=== PATIENT | female | born 1935 | race Caucasian/White ===

== ENCOUNTER 2017-01-07 10:20 | Observation (INO) | payer OTHER, BC ==
[~2017-01-07] VITALS: Ht 157.5 cm; Wt 97.4 kg
[~2017-01-07 10:20] MED LIST: KLOR-CON M2020 MEQ PO; LASIX40 MG PO; LISINOPRIL2.5 MG PO; LOPRESSOR25 MG PO; LOW DOSE ASPIRI81 M2 PO; METFORMIN HCL500 MG PO; PLAVIX75 MG PO; PREVACID15 MG PO; ZOCOR20 MG PO
[2017-01-07 13:23] LABS: HEMATOCRIT 40.7 % (36.0-46.0); MCH 27.3 PG (29.0-34.0); MCHC 30.5 G/DL (30.0-36.0); MCV 89.5 FL (83-99); MEAN PLAT.VOLUME 11.6 uM^3 (9.5-12.4); PLATELET COUNT 229 K/uL (156-360); RBC DIS.WIDTH-CV 13.5 % (11.8-14.6); RBC DIS.WIDTH-SD 44.2 % (39-53); RED BLOOD COUNT 4.55 M/uL (3.80-5.20); WHITE BLOOD COUNT 9.1 K/uL (4.1-10.2)
[2017-01-07 13:35] LABS: CHLORIDE 110 mEq/L (99-109); POTASSIUM 4.5 mEq/L (3.7-5.4); SODIUM 140 mEq/L (136-147)
[2017-01-07 13:37] LABS: GLUCOSE 175 mg/dL (70-99)
[2017-01-07 13:38] LABS: ANION GAP 11 MEQ/L (2-14)
[2017-01-07 13:41] LABS: GFR ESTIMATE (CALCULATED) 46 mL/min/; UREA NITROGEN (BUN) 34 mg/dL (9-23)
[2017-01-07 13:46] LABS: TROP-I INTERPRETATION NEGATIVE; TROPONIN-I < 0.01 ng/mL (0.0-0.30)
[2017-01-07] MEDS ORDERED: LOW DOSE ASPIRI81 M1 PO (14:09)
[2017-01-07] MEDS ORDERED: DIOVAN320 MG PO (14:10)
[2017-01-07] MEDS ORDERED: ALDACTAZIDE 251 EACH PO (14:10)
[2017-01-07] MEDS ORDERED: LIPITOR20 MG PO (14:12)
[2017-01-07] MEDS ORDERED: ATENOLOL100 MG PO (14:13)
[2017-01-07] MEDS ORDERED: VITAMIN D-32000 UNI2 PO (14:14)
[2017-01-07] MEDS ORDERED: AMLODIPINE BESY10 MG PO (14:15)
[2017-01-07 16:50] VITALS: BP 140/61
[2017-01-07 17:05] LABS: HDL CHOLESTEROL 37 MG/DL (Desirable>=50); LDL CHOLESTEROL 46 mg/dL (Desirable<100); NON-HDL CHOLESTEROL 70 mg/dL (Desirable<160); TOTAL CHOLESTEROL 107 mg/dL (Desirable<200); TRIGLYCERIDES 118 MG/DL (Normal: <150)
[2017-01-07 18:16] LABS: TROP-I INTERPRETATION NEGATIVE; TROPONIN-I < 0.01 ng/mL (0.0-0.30)
[2017-01-07 19:34] LABS: METH RESISTANT S AUREUS PCR NEGATIVE (NEGATIVE)
[2017-01-07 19:43] LABS: PROBE CHECK PASS; SPECIMEN PROCESSING CONTROL PASS
[2017-01-07 20:00] VITALS: BP 137/63
[2017-01-08 00:48] LABS: TROP-I INTERPRETATION NEGATIVE; TROPONIN-I < 0.01 ng/mL (0.0-0.30)
[2017-01-08 01:11] VITALS: BP 143/65
[2017-01-08 05:00] VITALS: BP 152/64
[2017-01-08 07:03] LABS: HEMATOCRIT 37.5 % (36.0-46.0); MCH 26.7 PG (29.0-34.0); MCHC 30.4 G/DL (30.0-36.0); MCV 87.8 FL (83-99); MEAN PLAT.VOLUME 11.9 uM^3 (9.5-12.4); PLATELET COUNT 218 K/uL (156-360); RBC DIS.WIDTH-CV 13.5 % (11.8-14.6); RBC DIS.WIDTH-SD 43.8 % (39-53); RED BLOOD COUNT 4.27 M/uL (3.80-5.20); WHITE BLOOD COUNT 8.3 K/uL (4.1-10.2)
[2017-01-08 07:24] VITALS: BP 130/61
[2017-01-08 07:32] LABS: ANION GAP 12 MEQ/L (2-14); CHLORIDE 107 MEQ/L (99-109); GFR ESTIMATE (CALCULATED) > 59 mL/min/; POTASSIUM 4.3 MEQ/L (3.7-5.4); SAMPLE HEMOLYSIS CHECK 0; SAMPLE ICTERIC CHECK 0; SAMPLE LIPEMIA CHECK 0; SODIUM 142 MEQ/L (136-147); UREA NITROGEN (BUN) 27 mg/dL (9-23)
[2017-01-08 07:33] LABS: GLUCOSE 115 mg/dL (70-99)
[2017-01-08 10:43] VITALS: BP 153/66
[2017-01-08] MEDS ORDERED: ATENOLOL25 MG PO (12:49)
== END 2017-01-08 14:49 | disposition home or self-care (01) ==
LOC: EME 10:20 → 5WEST 14:25 → EDOF 14:25 → 5WEST 16:23
PROVIDERS: Hospitalist
DX: R07.89 Other chest pain (principal); I10 Essential (primary) hypertension; E11.9 Type 2 diabetes mellitus without complications; I25.10 Atherosclerotic heart disease of native coronary artery without angina pectoris; Z95.1 Presence of aortocoronary bypass graft; E78.5 Hyperlipidemia, unspecified; E78.00 Pure hypercholesterolemia, unspecified; Z87.891 Personal history of nicotine dependence
CPT/HCPCS: 71020; 80048; 80061; 84484; 85027; 87641; 93005; 99281; 99285; G0378; J1644

== ENCOUNTER 2017-08-26 13:39 | Observation (INO) | payer OTHER, BC ==
[~2017-08-26] VITALS: Ht 157.5 cm; Wt 87.1 kg
[~2017-08-26 13:39] MED LIST changes: +ALDACTAZIDE 251 EACH PO; +AMLODIPINE BESY10 MG PO; +ATENOLOL100 MG PO; +ATENOLOL25 MG PO; +DIOVAN320 MG PO; +LIPITOR20 MG PO; +LOW DOSE ASPIRI81 M1 PO; +VITAMIN D-32000 UNI2 PO
[2017-08-26 14:12] LABS: HEMATOCRIT 38.3 % (36.0-46.0); MCH 27.5 PG (29.0-34.0); MCHC 31.3 G/DL (30.0-36.0); MCV 87.8 FL (83-99); MEAN PLAT.VOLUME 11.2 uM^3 (9.5-12.4); PLATELET COUNT 228 K/uL (156-360); RBC DIS.WIDTH-CV 13.5 % (11.8-14.6); RBC DIS.WIDTH-SD 43.9 % (39-53); RED BLOOD COUNT 4.36 M/uL (3.80-5.20); WHITE BLOOD COUNT 16.9 K/uL (4.1-10.2)
[2017-08-26 14:20] LABS: CHLORIDE 109 mEq/L (99-109); POTASSIUM 4.1 mEq/L (3.7-5.4); SODIUM 141 mEq/L (136-147)
[2017-08-26 14:22] LABS: GLUCOSE 193 mg/dL (70-99)
[2017-08-26 14:23] LABS: ANION GAP 13 MEQ/L (2-14)
[2017-08-26 14:26] LABS: GFR ESTIMATE (CALCULATED) 56 mL/min/
[2017-08-26 14:27] LABS: UREA NITROGEN (BUN) 14 mg/dL (9-23)
[2017-08-26 14:34] LABS: TROP-I INTERPRETATION NEGATIVE; TROPONIN-I < 0.01 ng/mL (0.0-0.30)
[2017-08-26] MEDS ORDERED: TENORMIN100 MG PO (15:13)
[2017-08-26] MEDS ORDERED: CELEXA10 MG PO (15:16)
[2017-08-26] MEDS ORDERED: TOPROL XL25 MG PO (15:16)
[2017-08-26] MEDS ORDERED: MICRO-K10 ME2 PO (15:17)
[2017-08-26 17:35] VITALS: BP 186/74
[2017-08-26 17:57] LABS: POINT-OF-CARE METER ID UU13113831
[2017-08-26 18:09] VITALS: BP 148/61
[2017-08-26 19:45] VITALS: BP 119/58
[2017-08-26 20:39] LABS: TROP-I INTERPRETATION NEGATIVE; TROPONIN-I 0.02 ng/mL (0.0-0.30)
[2017-08-26 21:17] LABS: POINT-OF-CARE METER ID UU13113831
[2017-08-26 22:41] LABS: ADD MIUA? YES; BILIRUBIN NEGATIVE; BLOOD SMALL; COLOR YELLOW ((YELLOW)); GLUCOSE (STRIP) NEGATIVE; KETONES NEGATIVE; LEUKOCYTES NEGATIVE; NITRITE NEGATIVE; PROTEIN (STRIP) NEGATIVE; UROBILINOGEN 0.2 MG/DL (0.2-1.0)
[2017-08-26 22:45] LABS: BACTERIA RARE /HPF; EPITHELIAL CELLS RARE /HPF; MUCUS TRACE /LPF; RED BLOOD CELLS 0-5 /HPF (0-5); WHITE BLOOD CELLS 0-5 /HPF (0-5)
[2017-08-26 22:49] LABS: SPECIFIC GRAVITY 1.055 (1.000-1.030)
[2017-08-26 23:41] VITALS: BP 115/53
[2017-08-27 02:03] LABS: TROP-I INTERPRETATION NEGATIVE; TROPONIN-I 0.02 ng/mL (0.0-0.30)
[2017-08-27 03:05] LABS: POINT-OF-CARE METER ID UU13113831
[2017-08-27 03:26] VITALS: BP 119/54
[2017-08-27 05:42] LABS: HEMATOCRIT 35.5 % (36.0-46.0); MCH 26.8 PG (29.0-34.0); MCHC 30.4 G/DL (30.0-36.0); MCV 88.1 FL (83-99); MEAN PLAT.VOLUME 11.8 uM^3 (9.5-12.4); PLATELET COUNT 205 K/uL (156-360); RBC DIS.WIDTH-CV 13.7 % (11.8-14.6); RBC DIS.WIDTH-SD 44.4 % (39-53); RED BLOOD COUNT 4.03 M/uL (3.80-5.20); WHITE BLOOD COUNT 10.3 K/uL (4.1-10.2)
[2017-08-27 05:56] LABS: INTER. NORMALIZED RATIO 1.3; PROTHROMBIN TIME 15.2 SEC (10.2-12.9)
[2017-08-27 05:59] LABS: PTT 29.9 SEC (25-37)
[2017-08-27 06:15] LABS: ANION GAP 9 MEQ/L (2-14); CHLORIDE 109 MEQ/L (99-109); GFR ESTIMATE (CALCULATED) 56 mL/min/; POTASSIUM 3.7 MEQ/L (3.7-5.4); SAMPLE HEMOLYSIS CHECK 0; SAMPLE ICTERIC CHECK 0; SAMPLE LIPEMIA CHECK 0; SODIUM 142 MEQ/L (136-147); UREA NITROGEN (BUN) 13 mg/dL (9-23)
[2017-08-27 06:16] LABS: GLUCOSE 104 mg/dL (70-99)
[2017-08-27 06:41] LABS: POINT-OF-CARE METER ID UU13113831
[2017-08-27 07:09] VITALS: BP 126/60
== END 2017-08-27 10:24 | disposition home or self-care (01) ==
LOC: EME 13:39 → EDOF 15:20 → ENRESERV 15:26 → 5WEST 17:29
PROVIDERS: Internal Medicine; Physician Assistant Medical
DX: R07.89 Other chest pain (principal); R06.02 Shortness of breath; I10 Essential (primary) hypertension; E78.5 Hyperlipidemia, unspecified; I25.10 Atherosclerotic heart disease of native coronary artery without angina pectoris; E11.65 Type 2 diabetes mellitus with hyperglycemia; Z95.1 Presence of aortocoronary bypass graft; Z79.82 Long term (current) use of aspirin; Z87.891 Personal history of nicotine dependence; Z77.22 Contact with and (suspected) exposure to environmental tobacco smoke (acute) (chronic)
CPT/HCPCS: 71020; 71275; 80048; 81003; 82948; 84484; 85027; 85379; 85610; 85730; 87086; 93005; 94640; 99202; 99281; 99285; G0378; J1650